=== PATIENT | male | born 1990 | race Caucasian/White ===

== ENCOUNTER → 2016-07-20 | Outpatient (REF) | payer OTHER ==
[~2016-07-20] MED LIST: /DIVA50TA PO; /HYDR1TAB PO; CELE40TA PO; CONC54TA2 PO; DEPA500T2 PO; HYDR-3363 PO; MELO7.5T3 PO; PROZ20CA11 PO; RISP4TAB33 PO; SERO200T PO; VENL37TA PO; VENL75CA PO
[2016-07-20 15:50] LABS: INR 0.89
[2016-07-23 08:06] LABS: ALT 11 IU/L (0-55); GGT 11 IU/L (0-65); HAPTOGLOBIN 126 mg/dL (34-200); NECROINFLAM SCORE 0.02 (0.00-0.17); NECROINFLAMM GRADE A0-No activity (.); TOTAL BILIRUBIN 0.4 mg/dL (0.0-1.2)
== END ==
LOC: M SFHCLERA 11:33
PROVIDERS: ATTEND Family Medicine
DX: R76.8 Other specified abnormal immunological findings in serum (principal)

== ENCOUNTER → 2016-10-05 | Outpatient (REF) | payer OTHER | LOC: M SFHCPLAZ 10:56 | PROVIDERS: ATTEND Internal Medicine Infectious Disease | DX: R19.7 Diarrhea, unspecified (principal) ==

== ENCOUNTER 2017-06-23 15:38 | Emergency (ER) | payer OTHER ==
[~2017-06-23] VITALS: Ht 172.7 cm; Wt 70.5 kg
[2017-06-23] MEDS ORDERED: KETOROLAC 60 MG/2 ML VIAL (J1885) IM ONE (16:15)
[2017-06-23] MEDS ORDERED: PERCOCET 5MG/325MG TAB PO ONE (16:15)
[2017-06-23] MEDS ORDERED: CYCLOBENZAPRINE 10 MG TAB PO ONE (16:15)
--- NOTE | 2017-06-23 16:57 | REP ---
Left femur: Four views. History: Injury in a fall. Comparison left hip radiographs are from April 23, 2013. Findings: Four views of the left femur demonstrate no evidence of fracture or subluxation. Transitionalized lumbosacral junction is noted. Left hemipelvis is intact. No femur fracture seen. Impression: No fracture noted. Signed by Mark Wynn MD 06/23/2017 05:13 P
[2017-06-23] MEDS ORDERED: CYCL10TA PO (17:21)
[2017-06-23] MEDS ORDERED: KETO10TAB PO (17:21)
[2017-06-23 17:28] VITALS: BP 131/86
--- NOTE | 2017-06-23 17:37 | REP ---
CT LUMBAR SPINE: CT lumbar spine performed in the axial plane with sagittal and coronal reconstruction images. There is no compression fracture. There is somewhat triangular shaped ossific density at the anterior superior corner of L4 which has the appearance of an unfused ossification center versus an old avulsion injury. There is no acute fracture. There is partial sacralization of L5 on the left. There is resultant mild narrowing of the L5-S1 disc space. No gross disc herniation is seen. IMPRESSION: No compression fracture or malalignment. At the anterior superior corner of L4 there is an unfused ossification center versus old avulsion injury. There is partial sacralization of L5 on the left. Signed by Abelardo Paulino MD 06/23/2017 08:44 P
== END 2017-06-23 17:36 | disposition home or self-care (01) ==
LOC: M ED 15:38
DX: S30.0XXA Contusion of lower back and pelvis, initial encounter (principal); W10.8XXA Fall (on) (from) other stairs and steps, initial encounter; Y92.89 Other specified places as the place of occurrence of the external cause; Y93.89 Activity, other specified; Y99.8 Other external cause status; F17.210 Nicotine dependence, cigarettes, uncomplicated
CPT/HCPCS: 72131; 73552; 96372; 99283; J1885

== ENCOUNTER → 2017-09-29 | Outpatient (CLI) | payer OTHER | LOC: M OUTALCOH 07:51 | DX: F12.20 Cannabis dependence, uncomplicated (principal) ==

== ENCOUNTER 2017-10-06 15:20 | Outpatient (RCR) | payer OTHER | END 2017-10-31 | LOC: M OUTALCOH 10-21 15:00 | DX: F12.20 Cannabis dependence, uncomplicated (principal) ==

== ENCOUNTER 2017-11-01 16:19 | Outpatient (RCR) | payer OTHER | END 2017-12-01 | LOC: M OUTALCOH 16:19 | DX: F12.20 Cannabis dependence, uncomplicated (principal) ==

== ENCOUNTER 2017-12-02 13:46 | Outpatient (RCR) | payer OTHER | END 2017-12-31 | LOC: M OUTALCOH 13:46 | DX: F12.20 Cannabis dependence, uncomplicated (principal) ==